=== PATIENT | female | born 1980 | race Caucasian/White ===

== ENCOUNTER 2018-02-11 08:17 | Inpatient (IN) | payer OTHER ==
[2018-02-11] MEDS: Lactated Ringer's 1,000 ML IV SCH ×2 (08:10→15:00)
[~2018-02-11 08:17] MED LIST: Acetaminophen 500 MG TAB PO PRN; Butorphanol Tartrate 1 MG/ML VIAL SLOW IVP PRN; Carboprost 250 MCG/ML AMP IM PRN; Diphenoxylate HCl/Atropine Tablet PO PRN; Docusate 100 MG CAP PO PRN; HYDROcodone/Acetaminophen 5/325 mg Tablet PO PRN; Ibuprofen 800 MG TAB PO PRN; Lidocaine 1% (PF) 30 ML VIAL SC PRN; Misoprostol 200 MCG TAB PR PRN; NS w/ Oxytocin 10 units 500 ML IV SCH; Ondansetron PF 4 MG/2 ML Vial IVP PRN; Promethazine HCl 25 MG/ML VIAL IM PRN
[2018-02-11] MEDS ORDERED: NS w/ Oxytocin 10 units 500 ML ONE (08:24)
[2018-02-11 08:53] LABS: Hemoglobin 12.3 g/dL (12.0-16.0); Mean Corpuscular Hemoglobin 31.9 pg (27.0-31.0); Mean Corpuscular Volume 91.3 fL (78.0-98.0); Mean Platelet Volume 8.1 fL (7.4-10.4); Platelet Count 196 thou/uL (130-400); RBC Distribution Width 12.5 % (11.5-14.5); Red Blood Cell (RBC) Count 3.86 mill/uL (4.20-5.40); White Blood Cell (WBC) Count 7.7 thou/uL (4.8-10.8)
--- NOTE | 2018-02-11 09:24 | PDOC.LDHP ---
Labor and Delivery H&P Chief complaint: scheduled induction HPI: 37 year old at 39w and 4d presents for medical term induction of labor for Gestational HTN, AMA. Current gestational age (weeks): 39 Due date: 02/14/18 Grav: 4 Para: 4 Current complications: gestational hypertension, other (Advanced Maternal Age) Abnormal US findings: No (BPP was 8/10 (-2 for breathing on 02/09/18)) Current medications: pre-jaky vitamins Allergies/Adverse Reactions: Allergies Allergy/AdvReac Type Severity Reaction Status Date / Time No Known Allergies Allergy Unverified 02/11/18 07:44 Social history: none - Physical Exam Vital signs reviewed and normal: yes General: NAD, resting Heart: RRR Lungs: CTAB Abdomen: NTTP Extremeties: no edema FHT: category 1 - Vaginal Exam cm dilated: 3 (3cm/60%/-2) - Assessment L&D Assessment: medically indicated induction - Plan Plan: admit to L&D, other (Term Medical induction of labor with Pitocin. GBS negative.)
[2018-02-11 09:32] LABS: HBSAg Index 0.16 S/CO (0-0.99); Hep B Surf Ag Non-Reactive S/CO (NonReactive); Syphilis Antibody Nonreactive (Nonreactive); Syphilis Antibody Index 0.06 S/CO (<1.00 Non-Reactive)
--- NOTE | 2018-02-11 14:46 | PDOC.EVN ---
Event Note - Event Note Event Note: Asked to AROM by Dr. Garcia. SVE 4-5/c/o, vtx. FHTs stable. UCs q 2-3 mins. AROM- clear fluid seen.
[2018-02-11] MEDS: NS / Oxytocin 40 units/1000ml 1,000 ML IV PRN ×2 (17:00→18:14)
[2018-02-11] MEDS ORDERED: HYDROcodone/Acetaminophen 5/325 mg Tablet PO PRN ×2 (21:40)
[2018-02-11] MEDS ORDERED: Ondansetron PF 4 MG/2 ML Vial IVP PRN (21:40)
[2018-02-11] MEDS ORDERED: Milk Of Magnesia 30 ML UDCUP PO PRN (21:40)
[2018-02-11] MEDS ORDERED: Bisacodyl 10 MG SUPP PR PRN (21:40)
[2018-02-11] MEDS ORDERED: diphenhydrAMINE 25 MG CAP PO PRN (21:40)
[2018-02-11] MEDS ORDERED: Benzocaine/Menthol 20-0.5% 60 ML CAN TOP PRN (21:40)
[2018-02-11] MEDS ORDERED: Lanolin Ointment 7 GM TUBE TOP PRN (21:40)
[2018-02-11] MEDS ORDERED: NS / Oxytocin 40 units/1000ml 1,000 ML IV SCH (21:40)
[2018-02-11] MEDS ORDERED: Preparation H Ointment 28 GM TUBE PR PRN (21:40)
[2018-02-11] MEDS ORDERED: Promethazine HCl 25 MG/ML VIAL IM PRN (21:40)
[2018-02-11] MEDS ORDERED: Zolpidem Tartrate 5 MG TAB PO PRN (21:40)
[2018-02-11] MEDS: Ibuprofen 800 MG TAB PO SCH (22:51)
[2018-02-12] MEDS: Ibuprofen 800 MG TAB PO SCH ×3 (05:11→21:09)
[2018-02-12 06:38] LABS: Hemoglobin 11.4 g/dL (12.0-16.0); Mean Corpuscular HGB CONC 34.6 g/dL (32.0-36.0); Mean Corpuscular Volume 92.3 fL (78.0-98.0); Mean Platelet Volume 8.1 fL (7.4-10.4); Platelet Count 174 thou/uL (130-400); RBC Distribution Width 12.5 % (11.5-14.5); Red Blood Cell (RBC) Count 3.55 mill/uL (4.20-5.40); White Blood Cell (WBC) Count 13.3 thou/uL (4.8-10.8)
[2018-02-12] MEDS ORDERED: Varicella virus, LIVE 0.5 ML VIAL SC ONE (09:00)
[2018-02-12] MEDS ORDERED: Adacel (T-DAP) 0.5 ML SYRINGE IM ONE (09:00)
[2018-02-12] MEDS ORDERED: Measles/Mumps/Rubella 10 MCG/0.5 ML VIAL SC ONE (09:00)
[2018-02-12] MEDS: Docusate Calcium (SURFAK) 240 MG CAP PO SCH ×2 (10:12→21:09)
[2018-02-12] MEDS: Prenatal Vitamin 1 TAB PO SCH (10:12)
[2018-02-12] MEDS: Ferrous Sulfate 325 MG TAB PO SCH ×2 (10:13→17:38)
--- NOTE | 2018-02-12 20:15 | PDOC.PP ---
Post Progress Note Post Day #: 1 PO intake tolerated: yes Flatus: yes Ambulation: yes Vital Signs (12 hours) Temp Pulse Resp BP Pulse Ox 02/12/18 17:12 98.2 F 77 16 106/69 99 02/12/18 11:58 97.9 F 76 20 110/68 - Physical Examination General: NAD Cardiovascular: no m/r/g, RRR Respiratory: clear to auscultation bilaterally Abdominal: + bowel sounds, no distention Extremities: negative homans (B) Neurological: no gross focal deficits Psychiatric: A&Ox3, normal affect (DC in am.) Result Diagrams: 02/12/18 05:57 Additional Labs: Post Labs Blood Type A POSITIVE 02/11/18 08:42 Hep Bs Antigen Non-Reactive S/CO (NonReactive) 02/11/18 08:42
[2018-02-13] MEDS: Ibuprofen 800 MG TAB PO SCH (05:52)
[2018-02-13 08:02] VITALS: BP 142/72; TEMP 98.2
[2018-02-13] MEDS: Docusate Calcium (SURFAK) 240 MG CAP PO SCH (09:32)
[2018-02-13] MEDS: Ferrous Sulfate 325 MG TAB PO SCH (09:32)
[2018-02-13] MEDS: Prenatal Vitamin 1 TAB PO SCH (09:32)
== END 2018-02-13 11:30 | disposition home or self-care (01) | DRG 807 ==
LOC: L&D 08:17 → 3SW 20:02
PROVIDERS: ADMIT Obstetrics & Gynecology; ATTEND Obstetrics & Gynecology
PROC: 3E033VJ Introduction of Other Hormone into Peripheral Vein, Percutaneous Approach (ICD-10-PCS; principal; 2018-02-11)
PROC: 10E0XZZ Delivery of Products of Conception, External Approach (ICD-10-PCS; 2018-02-11)
PROC: 10907ZC Drainage of Amniotic Fluid, Therapeutic from Products of Conception, Via Natural or Artificial Opening (ICD-10-PCS; 2018-02-11)
DX: O13.4 Gestational [pregnancy-induced] hypertension without significant proteinuria, complicating childbirth (principal); Z37.0 Single live birth; Z3A.39 39 weeks gestation of pregnancy; O99.284 Endocrine, nutritional and metabolic diseases complicating childbirth; E03.9 Hypothyroidism, unspecified; Z23 Encounter for immunization
CPT/HCPCS: 36415; 85027; 86780; 86850; 86900; 86901; 87340; 90715; J2001

== ENCOUNTER → 2020-01-14 13:00 | Inpatient (IN) | payer OTHER ==
[2018-02-11 07:49] VITALS: BMI 23.7
[2020-01-12] MEDS: Lactated Ringer's 1,000 ML IV SCH (17:14)
[2020-01-12 17:44] LABS: Hemoglobin 12.7 g/dL (12.0-16.0); Mean Corpuscular HGB CONC 34.3 g/dL (32.0-36.0); Mean Corpuscular Hemoglobin 32.3 pg (27.0-31.0); Mean Corpuscular Volume 94.1 fL (78.0-98.0); Mean Platelet Volume 8.2 fL (7.4-10.4); Platelet Count 189 thou/uL (130-400); RBC Distribution Width 12.3 % (11.5-14.5); Red Blood Cell (RBC) Count 3.93 mill/uL (4.20-5.40); White Blood Cell (WBC) Count 13.9 thou/uL (4.8-10.8)
[2020-01-12 17:56] LABS: ALT (SGPT) 7 U/L (8-55); AST (SGOT) 14 U/L (5-34); Albumin 3.5 g/dL (3.5-5.0); Alkaline Phosphatase 104 U/L (40-110); Anion Gap 14 mmol/L (10-20); BUN (Urea Nitrogen) 12 mg/dL (7.0-18.7); Bilirubin, Total 0.4 mg/dL (0.2-1.2); Calc. Creatinine Clearance 127 mL/min (70-130); Calcium 8.9 mg/dL (7.8-10.44); Carbon Dioxide 20 mmol/L (22-29); Chloride 107 mmol/L (98-107); Estimated GFR-MDRD Greater than 90; Globulin 2.9 g/dL (2.4-3.5); Glucose 87 mg/dL (70-105); Potassium 3.8 mmol/L (3.5-5.1); Protein, Total 6.4 g/dL (6.0-8.3); Sodium 137 mmol/L (136-145)
[2020-01-12 18:15] LABS: HBSAg Index 0.13 S/CO (0-0.99); Hep B Surf Ag Non-Reactive S/CO (NonReactive)
[2020-01-12 18:26] LABS: Syphilis Antibody Nonreactive (Nonreactive); Syphilis Antibody Index 0.05 S/CO (<1.00 Non-Reactive)
[2020-01-12 20:01] LABS: Creatinine, Urine 27.91 mg/dL (47-110); Protein, Urine Random Quant Less than 10 mg/dL (1-14)
[2020-01-13] MEDS: Lactated Ringer's 1,000 ML IV SCH ×2 (00:10→01:10)
--- NOTE | 2020-01-13 03:38 | PDOC.LDHP ---
Labor and Delivery H&P HPI: 39 y/o with GDM and now new dx of GHTN at 37 weeks presents for term medical induction of labor for GHTN at 37 weeks as per ACOG recommendations. Current gestational age (weeks): 37 Abnormal US findings: No Current medications: pre-jaky vitamins Previous surgical history: none Allergies/Adverse Reactions: Allergies Allergy/AdvReac Type Severity Reaction Status Date / Time No Known Allergies Allergy Unverified 02/11/18 07:44 Social history: none - Physical Exam Vital signs reviewed and normal: yes General: NAD, resting Heart: RRR Lungs: CTAB Abdomen: gravid Extremeties: no edema FHT: category 1 - Vaginal Exam cm dilated: 2 Effacement: 50% Station: -2 - Assessment L&D Assessment: medically indicated induction - Plan Plan: admit to L&D, cervical ripening
[2020-01-13] MEDS: Ibuprofen 800 MG TAB PO SCH ×3 (09:07→21:53)
[2020-01-13] MEDS: Docusate Calcium (SURFAK) 240 MG CAP PO SCH ×2 (09:07→21:53)
[2020-01-13] MEDS: Prenatal Vitamin 1 TAB PO SCH (09:07)
[2020-01-13 12:14] LABS: SARS-CoV-2 MS2 Positive; SARS-CoV-2 N Gene Negative; SARS-CoV-2 S Gene Negative; SARS-CoV-2 by NAA Not Detected (NotDetected); SARS-CoV-2 orf1ab Negative
[2020-01-13] MEDS: Ferrous Sulfate 325 MG TAB PO SCH ×2 (12:14→16:50)
[2020-01-14] MEDS: Ibuprofen 800 MG TAB PO SCH (05:56)
[2020-01-14 06:25] LABS: Hemoglobin 10.6 g/dL (12.0-16.0); Mean Corpuscular HGB CONC 34.5 g/dL (32.0-36.0); Mean Corpuscular Hemoglobin 32.8 pg (27.0-31.0); Mean Platelet Volume 7.5 fL (7.4-10.4); Platelet Count 118 thou/uL (130-400); RBC Distribution Width 12.4 % (11.5-14.5); Red Blood Cell (RBC) Count 3.22 mill/uL (4.20-5.40)
[2020-01-14] MEDS: Ferrous Sulfate 325 MG TAB PO SCH (08:34)
[2020-01-14] MEDS: Prenatal Vitamin 1 TAB PO SCH (08:37)
[2020-01-14] MEDS: Docusate Calcium (SURFAK) 240 MG CAP PO SCH (08:37)
[2020-01-14 11:44] VITALS: BP 120/67; TEMP 98
[~2020-01-14 13:00] MED LIST changes: +Acetaminophen 325 MG TAB PO PRN; +Adacel (T-DAP) 0.5 ML SYRINGE IM ONE; +Benzocaine-Menthol 82.5 ML CAN TOP PRN; +Bisacodyl 10 MG SUPP PR PRN; +Bupivacaine/Epinephrine 0.25% 30 ML VIAL ONE; +Communication Order-Pharmacy FS SCH; -Docusate 100 MG CAP PO PRN; +Fentanyl 4 mcg/Bup 0.1% Cadd 100 ML ONE; +Fentanyl 4 mcg/Bupivacaine 0.1% Cassette 100 ML EPIDURAL SCH; +Lactated Ringer's 500 ML IV PRN; +Lanolin Ointment 7 GM TUBE TOP PRN; +Lidocaine 1% (PF) 30 ML VIAL ONE; +Measles/Mumps/Rubella 10 MCG/0.5 ML VIAL SC ONE; +Milk Of Magnesia 30 ML UDCUP PO PRN; +Misoprostol 100 MCG TAB VAG SCH; +Misoprostol 200 MCG TAB VAG PRN; +NS / Oxytocin 40 units/1000ml 1,000 ML IV PRN; +NS / Oxytocin 40 units/1000ml 1,000 ML IV SCH; +NS / Oxytocin 40 units/1000ml 1,000 ML ONE; +Naloxone HCl 0.4 mg/ml Vial IVP PRN; +Preparation H Ointment 28 GM TUBE PR PRN; +Varicella virus, LIVE 0.5 ML VIAL SC ONE; +Zolpidem Tartrate 5 MG TAB PO PRN; +diphenhydrAMINE 25 MG CAP PO PRN; +diphenhydrAMINE 50 MG/ML VIAL IVP PRN; +ePHEDrine 50 MG/ML VIAL SLOW IVP PRN; +hydrALAZINE 20 MG/ML VIAL SLOW IVP PRN
== END | disposition home or self-care (01) | DRG 807 ==
LOC: L&D/OP 02-11 07:25 → EDSTATUS 02-11 15:54 → L&D 01-12 16:31 → 3SW 01-13 06:48
PROVIDERS: ADMIT Obstetrics & Gynecology; ATTEND Obstetrics & Gynecology
PROC: 10907ZC Drainage of Amniotic Fluid, Therapeutic from Products of Conception, Via Natural or Artificial Opening (ICD-10-PCS; 2020-01-12)
PROC: 3E033VJ Introduction of Other Hormone into Peripheral Vein, Percutaneous Approach (ICD-10-PCS; 2020-01-12)
PROC: 10E0XZZ Delivery of Products of Conception, External Approach (ICD-10-PCS; principal; 2020-01-13)
DX: O13.4 Gestational [pregnancy-induced] hypertension without significant proteinuria, complicating childbirth (principal); Z37.0 Single live birth; Z3A.37 37 weeks gestation of pregnancy; Z20.828 Contact with and (suspected) exposure to other viral communicable diseases
CPT/HCPCS: 36415; 51702; 80053; 82570; 84156; 85027; 86780; 86850; 86900; 86901; 87340; 87635; J2590; U0003